=== PATIENT | female | born 1950 | race Caucasian/White ===

== ENCOUNTER 2016-06-27 06:34 | Day surgery (SDC) | payer MEDICARE ==
[2016-06-26 11:44] VITALS: BMI 25.7
[2016-06-27] MEDS ORDERED: ceFAZolin 1,000 MG in DEXTROSE/WATER 1 50ML.BAG IVPB ONE (07:00)
[2016-06-27 07:03] VITALS: RESP 16; TEMP 98.4
[2016-06-27] MEDS ORDERED: SODIUM CHLORIDE 0.9% 1,000 ML IV ONE (07:10)
[2016-06-27] MEDS ORDERED: ceFAZolin 1,000 MG/50 ML BAG (PMX) IV ONE (07:55)
[2016-06-27] MEDS ORDERED: LIDOCAINE 2% INJ 20 MG/ML SQ ONE (07:58)
[2016-06-27] MEDS ORDERED: fentaNYL (PF) 50 MCG/ML 2 ML AMP IV ONE (08:03)
[2016-06-27] MEDS ORDERED: IODIXANOL 320 MG/ML 100 ML IV ONE (08:05)
--- NOTE | 2016-06-27 08:55 | IR ---
Fluoroscopic guided bilateral nephrostomy tube exchange CLINICAL HISTORY: Bilateral nephrostomy tubes FINDINGS: The procedure was discussed with the patient. The risks, complications, benefits, and alternatives we re discussed and any questions were answered. Informed consent was obtained. The patient was placed p amber on the ultrasound table and prepped and draped in the usual sterile fashion. All elements of max imal barrier technique were utilized. Pre-existing left nephrostomy tube was cut and 0.035 guidewire was placed through the catheter. There is exchanged for a new 8.5 Turkmen nephrostomy tube. Injection of contrast demonstrated angioplasty c atheter. Subsequently the right-sided nephrostomy tube was exchanged as detailed above. The patient w as stable throughout the procedure and remained stable upon discharge from Department of Radiology. IMPRESSION: Successful fluoroscopic guided bilateral nephrostomy tube exchange over a guidewire.
[2016-06-27 10:27] VITALS: BP 122/60; PULSE 78
== END 2016-06-27 10:26 | disposition home or self-care (01) ==
LOC: OR 06:34
PROVIDERS: ATTEND Radiology Diagnostic Radiology
DX: Z43.6 Encounter for attention to other artificial openings of urinary tract (principal); N13.30 Unspecified hydronephrosis; C67.4 Malignant neoplasm of posterior wall of bladder; N39.0 Urinary tract infection, site not specified; N39.46 Mixed incontinence; Z79.2 Long term (current) use of antibiotics; Z79.899 Other long term (current) drug therapy; F17.200 Nicotine dependence, unspecified, uncomplicated
CPT/HCPCS: 75984; C1769 ×3; C1729; J2001; Q9967; J3010; J0690

== ENCOUNTER → 2016-07-19 | Outpatient (CLI) | payer MEDICARE, OTHER ==
[2016-07-19 08:57] LABS: Calcium 8.8 mg/dL (8.4-10.2); Potassium 3.1 mmol/L (3.5-5.1)
== END | disposition home or self-care (01) ==
LOC: LABWHC1 07:40
PROVIDERS: ATTEND Urology
DX: N17.9 Acute kidney failure, unspecified (principal)
CPT/HCPCS: 36415; 80048

== ENCOUNTER → 2016-07-19 | Day surgery (SDC) | payer MEDICARE, OTHER ==
[~2016-07-19] MED LIST: LIDOCAINE 2% INJ 20 MG/ML SQ ONE; SODIUM CHLORIDE 0.9% 500 ML IV ONE; ceFAZolin 1,000 MG in DEXTROSE/WATER 1 50ML.BAG IVPB STA; ceFAZolin 1,000 MG/50 ML BAG (PMX) IV ONE
[2016-07-19 12:34] VITALS: RESP 16; TEMP 98.2
[2016-07-19 14:24] VITALS: BP 149/68; PULSE 77
--- NOTE | 2016-07-19 14:31 | IR ---
Nephrostomy tube exchange HISTORY: Malfunctioning nephrostomy tube on the right Patient's indwelling tube was prepped in sterile fashion. Barrier technique was utilized. General hand injection of contrast performed under fluoroscopy. A sim ilar findings indwelling tube was subsequently exchanged for an 8.5 Qatari nephrostomy tube over an A mplatz wire. Spot image obtained following placement. Catheter is draining urine. Patient remained in stable condition without complication. FINDINGS: ET tube is withdrawn into a posterior inferior calyx. IMPRESSION: Status post nephrostomy tube exchange, this procedure performed by the undersigned. Tube changes should be performed within 8-12 weeks.
== END ==
LOC: CATHCVL 12:04
PROVIDERS: ATTEND Radiology Diagnostic Radiology
DX: N99.522 Malfunction of incontinent external stoma of urinary tract (principal); C67.4 Malignant neoplasm of posterior wall of bladder; N13.30 Unspecified hydronephrosis; N17.9 Acute kidney failure, unspecified; Z79.891 Long term (current) use of opiate analgesic; Z79.899 Other long term (current) drug therapy; F17.200 Nicotine dependence, unspecified, uncomplicated
CPT/HCPCS: 50435; C1729; C1769 ×3; J2001; J0690

== ENCOUNTER → 2016-07-27 | Outpatient (CLI) | payer MEDICARE, OTHER ==
--- NOTE | 2016-07-27 13:00 | CT ---
EXAMINATION TYPE: CT ChestAbdPelvis wo con DATE OF EXAM: 07/27/2016 12:43 PM COMPARISON: Previous study dated 04/27/2016 and 04/03/2016 HISTORY: Patient has no complaints at time of study. Follow up for Bladder CA. CT DLP: 367.3 mGycm Automated exposure control for dose reduction was used. TECHNIQUE: Helical acquisition through the abdomen and pelvis was obtained without oral contrast but without intravenous contrast. The data was formatted in the axial, coronal and sagittal projections. FINDINGS: There are generalized changes of emphysema throughout the lungs. There is a stable 3.0 mm n odule along the major fissure on the left, best seen on image 13. There is a stable 3.6 mm nodule oleksandr ng the minor fissure on the right, best seen on image 34. There is a 4.4 mm nodule in the lateral asp ect of the right middle lobe, best seen on image 37. There is a 3 mm nodule present in the lateral as pect of the right middle lobe, best seen on image 40. There is a 4.9 mm subpleural nodule in the righ t middle lobe, best seen on image 35. All of these nodules are stable. There is a subpleural 3.9 mm n odule in the lateral segment of the left upper lobe, best seen on image 17. There is a new 5 mm nodul e in the apical posterior segment of the right upper lobe, best seen on image 14. This was not seen w ith certainty on the previous examination. No other definite parenchymal lesions are seen. There is no significant axillary, internal mammary, mediastinal or hilar adenopathy. There is a stabl e 6.2 mm pericardial effusion. No pleural fluid is seen. The heart is not enlarged. Within the abdomen, there is a 1.9 cm low attenuating lesion in the medial segment of the left lobe o f the liver. This was present previously and appears unchanged. The gallbladder is been removed. The spleen is unremarkable. Both adrenal glands are normal. There are bilateral nephrostomy tubes in place. There is atrophy of the left kidney. Limited views of the pancreas are unremarkable. There is no significant retroperitoneal, iliac or inguinal adenopathy. The uterus and ovaries appear normal. There is air within the bladder. The bladder wall appears thickened. There are scattered diverticula within the sigmoid colon. I do not see convincing evidence of diverti culitis. Small bowel loops are normal. No free fluid and no free air is identified. There is hypertrophic spondylosis and degenerative disc disease and facet arthropathy within the spin e. No bony destructive lesion is seen. IMPRESSION: 1. MULTIPLE PULMONARY NODULES. ONE NODULE IN THE LEFT UPPER LOBE APPEARS NEW. FOLLOW-UP IN 3 MONTHS T KOURTNEY IS SUGGESTED. 2. STABLE LEFT HEPATIC LESION. 3. STABLE PERICARDIAL EFFUSION. 4. BILATERAL NEPHROSTOMY TUBES IN PLACE. THERE IS ATROPHIC CHANGE IN THE LEFT KIDNEY. 5. UNCOMPLICATED DIVERTICULOSIS OF THE SIGMOID COLON. 6. THICKENING OF THE BLADDER WALL. 7. DEGENERATIVE CHANGE WITHIN THE SPINE.
== END | disposition home or self-care (01) ==
LOC: RADPROMAIN 10:24
PROVIDERS: ATTEND Internal Medicine Hematology & Oncology
DX: K57.30 Diverticulosis of large intestine without perforation or abscess without bleeding (principal); K76.89 Other specified diseases of liver; I31.3 Pericardial effusion (noninflammatory); N26.1 Atrophy of kidney (terminal); N32.89 Other specified disorders of bladder; R91.8 Other nonspecific abnormal finding of lung field; Z93.6 Other artificial openings of urinary tract status
CPT/HCPCS: 36415; 71250; 74176; 82565; 84520

== ENCOUNTER → 2016-08-02 | Outpatient (CLI) | payer MEDICARE, OTHER ==
[2016-08-02 13:59] VITALS: BP 87/57; PULSE 86; RESP 14; TEMP 98
== END | disposition home or self-care (01) ==
LOC: RADPROMAIN 13:05
PROVIDERS: ATTEND Radiology Diagnostic Radiology
DX: Z53.9 Procedure and treatment not carried out, unspecified reason (principal)

== ENCOUNTER 2016-08-09 11:08 | Outpatient (CLI) | payer MEDICARE, OTHER ==
[2016-08-09 11:19] VITALS: BP 133/81; PULSE 114; RESP 14; TEMP 97.8
== END 2016-08-09 11:48 | disposition home or self-care (01) ==
LOC: RADPROMAIN 11:08
PROVIDERS: ATTEND Radiology Diagnostic Radiology
DX: Z53.9 Procedure and treatment not carried out, unspecified reason (principal)

== ENCOUNTER 2016-08-10 15:29 | Emergency (ER) | payer MEDICARE, OTHER ==
[2016-08-10] MEDS ORDERED: SODIUM CHLORIDE 0.9% 500 ML IV ONE (15:53)
[2016-08-10] MEDS ORDERED: ONDANSETRON 4 MG/2 ML VIAL IVP STA (15:54)
[2016-08-10] MEDS ORDERED: HYDROmorphone 1 MG/ML 1 ML SYRINGE IVP STA (15:54)
--- NOTE | 2016-08-10 15:57 | ED ---
General Adult HPI - General Chief complaint: Nausea/Vomiting/Diarrhea Stated complaint: kidney pain sent by [employer] Time Seen by Provider: 08/10/16 15:40 Source: patient, RN notes reviewed Mode of arrival: wheelchair Limitations: no limitations - History of Present Illness Initial comments: This is a 66-year-old female who presents to the emergency department with a past medical history significant for bladder cancer. Patient has bilateral nephrostomy tubes. Patient states since this morning she has noted that the right nephrostomy tube has been leaking through the bandage. Patient states her also does not appear to be much urine output in the back. Patient also states that her pain is in excess of her Percocet. Patient also states she is extremely nauseated and has been vomiting this morning. Patient states they called the urologist's office and they recommended the patient to come to the emergency department. Patient denies any fever or chills. Patient denies any abdominal pain. Patient denies any chest pain or difficulty breathing. Patient denies any recent diarrhea. Patient states that the left nephrostomy tube is not functioning and hasn't been for a while but that is not bothering her. - Related Data Home Medications Medication Instructions Recorded Confirmed ALPRAZolam [Xanax] 0.25 mg PO BID 04/03/16 07/19/16 oxyCODONE-APAP 10-325MG [Percocet 1 tab PO Q6HR PRN 05/17/16 07/19/16 10-325 mg] Famotidine [Pepcid] 20 mg PO DAILY 05/24/16 07/19/16 Ondansetron [Zofran] 8 mg PO QID PRN 05/24/16 07/19/16 Potassium Chloride [Klor-Con 20] 20 meq PO DAILY 07/19/16 07/19/16 Allergies Allergy/AdvReac Type Severity Reaction Status Date / Time No Known Allergies Allergy Verified 08/10/16 15:40 Review of Systems ROS Statement: Those systems with pertinent positive or pertinent negative responses have been documented in the HPI. ROS Other: All systems not noted in ROS Statement are negative. Past Medical History Past Medical History: Cancer, GERD/Reflux, Osteoarthritis (OA) Additional Past Medical History / Comment(s): BLADDER CANCER (DX MAR 2016), STATES LAST CHEMO WAS 06/13/16. UTI'S, DIVERTICULITIS, RIGHT INFUSAPORT INSERTED 06/25/16., HAS RIGHT AND LEFT NEPHROSTOMY TUBES., STATES SOME VAGINAL AND URETHRAL DRAINAGE. History of Any Multi-Drug Resistant Organisms: None Reported Past Surgical History: Appendectomy, Bladder Surgery, Cholecystectomy, Tubal Ligation Additional Past Surgical History / Comment(s): 04-03-16 INSERTION NEPHROSTOMY TUBES. BLADDER SUSPENSION, SIRISHA CARPAL TUNNEL, COLONOSCOPY/ 06/25/16 rt chest wall mediport insertion Past Anesthesia/Blood Transfusion Reactions: No Reported Reaction Past Psychological History: No Psychological Hx Reported Smoking Status: Current every day smoker Past Alcohol Use History: None Reported Additional Past Alcohol Use History / Comment(s): STARTED SMOKING AT AGE 30, SMOKED 1/2 PPD. CURRENTLY SMOKING 2 CIGARETTES PER DAY. Past Drug Use History: None Reported - Past Family History Father Family Medical History: Myocardial Infarction (MA) Mother Family Medical History: Diabetes Mellitus General Exam - General Exam Comments Initial Comments: GENERAL: Patient is well-developed and well-nourished. Patient is nontoxic and well- hydrated and is in monitor distress. ENT: Neck is soft and supple. No significant lymphadenopathy is noted. Oropharynx is clear. Moist mucous membranes. Neck has full range of motion without eliciting any pain. EYES: The sclera were anicteric and conjunctiva were pink and moist. Extraocular movements were intact and pupils were equal round and reactive to light. Eyelids were unremarkable. PULMONARY: Unlabored respirations. Good breath sounds bilaterally. No audible rales rhonchi or wheezing was noted. CARDIOVASCULAR: There is a regular rate and rhythm without any murmurs gallops or rubs. ABDOMEN: Soft and nontender with normal bowel sounds. No palpable organomegaly was noted. There is no palpable pulsatile mass. SKIN: Skin is clear with no lesions or rashes and otherwise unremarkable. NEUROLOGIC: Patient is alert and oriented x3. Cranial nerves II through XII are grossly intact. Motor and sensory are also intact. Normal speech, volume and content. Symmetrical smile. MUSCULOSKELETAL: Normal extremities with adequate strength and full range of motion. No lower extremity swelling or edema. No calf tenderness. Patient has 2 nephrostomy tubes in the back the right nephrostomy tube has a bandage around it that is completely transient urine and the bandages lifted off the skin where the tube enters the bandage. PSYCHIATRIC: Normal psychiatric evaluation. Limitations: no limitations Course Vital Signs 04/14/17 04/14/17 15:38 16:49 Temperature 98.9 F 97.4 F L Pulse Rate 89 80 Respiratory 18 20 Rate Blood Pressure 160/67 114/60 O2 Sat by Pulse 95 97 Oximetry Medical Decision Making - Medical Decision Making I spoke with Dr. To Gardiner wanted the radiologist to evaluate the patient and possibly change the tubes. I spoke with Dr. Thomason and he agreed to come down and very patient and determine the next step. Dr. Thomason took the patient upstairs to the Principal Mechanical Engineer the patient was discharged to his care. He stated he would talk to Dr. Harman about the patient's lab work. - Lab Data Result diagrams: 08/10/16 16:20 08/10/16 16:20 Lab Results 08/10/16 08/10/16 Range/Units 16:20 16:20 WBC 13.9 H (3.8-10.6) k/uL RBC 2.81 L (3.80-5.40) m/uL Hgb 8.7 L D (11.4-16.0) gm/dL Hct 25.8 L (34.0-46.0) % MCV 91.7 (80.0-100.0) fL MCH 30.9 (25.0-35.0) pg MCHC 33.7 (31.0-37.0) g/dL RDW 17.5 H (11.5-15.5) % Plt Count 289 D (150-450) k/uL Neutrophils % 86 % Lymphocytes % 7 % Monocytes % 6 % Eosinophils % 0 % Basophils % 0 % Neutrophils # 11.9 H (1.3-7.7) k/uL Lymphocytes # 0.9 L (1.0-4.8) k/uL Monocytes # 0.8 (0-1.0) k/uL Eosinophils # 0.0 (0-0.7) k/uL Basophils # 0.0 (0-0.2) k/uL Hypochromasia Slight Poikilocytosis Slight Anisocytosis Slight Sodium 130 L (137-145) mmol/L Potassium 4.2 (3.5-5.1) mmol/L Chloride 96 L (98-107) mmol/L Carbon Dioxide 24 (22-30) mmol/L Anion Gap 10 mmol/L BUN 32 H (7-17) mg/dL Creatinine 3.64 H (0.52-1.04) mg/dL Est GFR (MDRD) Af Amer 15 (>60 ml/min/1.73 sqM) Est GFR (MDRD) Non-Af 12 (>60 ml/min/1.73 sqM) Glucose 113 H (74-99) mg/dL Calcium 12.6 H (8.4-10.2) mg/dL Total Bilirubin 0.7 (0.2-1.3) mg/dL AST 18 (14-36) U/L ALT 21 (9-52) U/L Alkaline Phosphatase 110 (38-126) U/L Total Protein 6.9 (6.3-8.2) g/dL Albumin 3.0 L (3.5-5.0) g/dL Disposition Clinical Impression: Nephrostomy tube displaced Disposition: ADMITTED IP TO THIS [facility] Condition: Stable Time of Disposition: 17:43
[2016-08-10 16:47] LABS: Anisocytosis Slight; Basophils % (A) 0 %; CH 30.3; CHCM 33.1; Eosinophils % (A) 0 %; HCT 25.8 % (34.0-46.0); HDW 3.69; Hypochromasia Slight; Luc # (Auto) 0.23; Luc % (Auto) 2; Lymphocytes # (A) 0.9 k/uL (1.0-4.8); Lymphocytes % (A) 7 %; MCH 30.9 pg (25.0-35.0); MCHC 33.7 g/dL (31.0-37.0); MCV 91.7 fL (80.0-100.0); Mean Platelet Volume 7.1; Monocytes # (A) 0.8 k/uL (0-1.0); Monocytes % (A) 6 %; Neutrophils # (A) 11.9 k/uL (1.3-7.7); Neutrophils % (A) 86 %; Poikilocytosis Slight; RBC 2.81 m/uL (3.80-5.40); RDW 17.5 % (11.5-15.5); WBC 13.9 k/uL (3.8-10.6); WBC (Perox) 14.86
[2016-08-10 16:50] LABS: Calcium 12.6 mg/dL (8.4-10.2); Potassium 4.2 mmol/L (3.5-5.1); Total Bilirubin 0.7 mg/dL (0.2-1.3); Total Protein 6.9 g/dL (6.3-8.2)
[2016-08-10 16:54] VITALS: TEMP 97.4
[2016-08-10 16:54] LABS: HGB 8.7 gm/dL (11.4-16.0)
[2016-08-10] MEDS ORDERED: IODIXANOL 320 MG/ML 100 ML IV ONE (17:17)
[2016-08-10 17:42] VITALS: BP 124/59; PULSE 106; RESP 16
--- NOTE | 2016-08-13 10:46 | IR ---
Nephrostomy tube check history: Leaking right-sided nephrostomy tube Patient's indwelling right-sided nephrostomy tube was prepped and draped in sterile fashion. Under di rect fluoroscopic observation, gentle hand injection of contrast was performed. Spot image was obtain ed verifying placement in the renal collecting system. Catheter was advanced slightly fixed in place. No immediate complication. Patient remained in stable condition. IMPRESSION: Status post nephrostomy tube check.
== END 2016-08-10 16:49 | disposition other institution (70) ==
LOC: EC 15:29 → UNDOADMOB 16:56 → 3OBS 16:56
DX: T83.022A Displacement of nephrostomy catheter, initial encounter (principal); K21.9 Gastro-esophageal reflux disease without esophagitis; F17.210 Nicotine dependence, cigarettes, uncomplicated; Z79.899 Other long term (current) drug therapy; Z85.51 Personal history of malignant neoplasm of bladder; Z90.49 Acquired absence of other specified parts of digestive tract; Z98.890 Other specified postprocedural states
CPT/HCPCS: 99285; 96374; 96375; 36415; 74425; 80053; 85025; C1769; Q9967; J2405; J1170